=== PATIENT | female | born 1940 | race Caucasian/White ===

== ENCOUNTER → 2018-04-23 | Outpatient (CLI) | payer OTHER, BC | LOC: FIMAGING 10:19 | PROVIDERS: ATTEND Orthopaedic Surgery | DX: Z01.818 Encounter for other preprocedural examination (principal); M17.12 Unilateral primary osteoarthritis, left knee ==

== ENCOUNTER 2018-05-15 09:04 | Inpatient (IN) | payer OTHER ==
--- NOTE | 2018-05-15 06:20 | PDHPUP ---
History & Physical Update H&P update statement: This history and physical update is based on an assessment of the patient which was completed after admission or registration (within 24 hours), but prior to the surgery/procedure. H&P update: H&P reviewed & patient examined, no change in patient's condition since H&P completed
[~2018-05-15 09:04] MED LIST: ROPIVACAINE 0.2% 80 MG, EPINEPHrine 0.2 MG, KETOROLAC TROMETHAMINE 30 MG in SYRINGE 0 ML IU ONE; TRANEXAMIC ACID 3,000 MG in NS (SYRINGE) 50 ML IRR ONE; TRANEXAMIC ACID 3,000 MG/50 ML BAG IRR ONE
[2018-05-15] MEDS ORDERED: FAMOTIDINE 20 MG TAB PO ONE (09:18)
[2018-05-15] MEDS ORDERED: DEXAMETHASONE 4 MG/ML VIAL IVP ONE (09:18)
[2018-05-15] MEDS ORDERED: ceFAZolin 2 GM/DEXTROSE 100 ML IV ONE (09:18)
[2018-05-15] MEDS ORDERED: ACETAMINOPHEN 325 MG TAB PO ONE (09:18)
[2018-05-15] MEDS ORDERED: LIDOCAINE 1% 2 ML INJ ID PRN (09:19)
[2018-05-15] MEDS ORDERED: LR 1,000 ML IV ONE (09:19)
[2018-05-15] MEDS ORDERED: MIDAZOLAM 2 MG/2 ML VIAL IVP ONE ×2 (10:05→10:40)
--- NOTE | 2018-05-15 10:28 | PDANEPAE ---
ANE Past Medical History - Cardiovascular History Hx Hypertension: No Hx Arrhythmias: No Hx Chest Pain: No Hx Coronary Artery / Peripheral Vascular Disease: No Hx CHF / Valvular Disease: No Hx Palpitations: No - Pulmonary History Hx COPD: No Hx Asthma/Reactive Airway Disease: No Hx Recent Upper Respiratory Infection: No Hx Oxygen in Use at Home: No Hx Sleep Apnea: No Sleep Apnea Screening Result - Last Documented: Negative - Neurologic History Hx Cerebrovascular Accident: No Hx Seizures: No Hx Dementia: No - Endocrine History Hx Diabetes: No - Renal History Hx Renal Disorders: No - Liver History Hx Hepatic Disorders: No - Neurological & Psychiatric Hx Hx Neurological and Psychiatric Disorders: No - Cancer History Hx Cancer: No - Congenital Disorder History Hx Congenital Disorders: No - GI History Hx Gastrointestinal Disorders: No - Other Health History Other Health History: pre-glaucoma drops preventative. post menapausal - Chronic Pain History Chronic Pain: No (left shoulder,right knee) - Surgical History Prior Surgeries: childbirth 38yrs ago. colonoscopy ANE Review of Systems Review of Systems: - Exercise capacity METS (RN): 4 METS ANE Patient History - Allergies Allergies/Adverse Reactions: No Known Allergies Allergy (Verified 05/15/18 09:31) - Home Medications Home medications: home medication list seen and reviewed Home Medications: Herbals/Supplements -Info Only 1 ea PO DAILY 04/17/18 [Last Taken 04/30/18] Timolol 0.25% [TIMOPTIC 0.25% (*)] 1 drops EACHEYE DAILY 04/17/18 [Last Taken 08:00] - NPO status NPO Since - Liquids (Date): 05/15/18 NPO Since - Liquids (Time): 08:00 NPO Since - Solids (Date): 05/14/18 NPO Since - Solids (Time): 18:00 - Anes Hx Anes Hx: no prior problems - Smoking Hx Smoking Status: Former smoker - Family Anes Hx Family Hx Anesthesia Complications: none ANE Labs/Vital Signs - Vital Signs Vital Signs: reviewed preoperatively; see RN documention for details Blood Pressure: 146/88 Heart Rate: 68 Respiratory Rate: 16 O2 Sat (%): 97 Height: 160.02 cm Weight: 76.204 kg ANE Physical Exam - Airway Neck exam: FROM Mallampati Score: Class 4 Mouth exam: small mouth opening - Pulmonary Pulmonary: clear to auscultation - Cardiovascular Cardiovascular: regular rate and rhythym - ASA Status ASA Status: II ANE Anesthesia Plan Anesthesia Plan: spinal Regional Anesthesia: adductor canal FNB
[2018-05-15] MEDS ORDERED: PROPOFOL/EMULSION 500 MG/50 ML BOTTLE IV ONE (10:53)
[2018-05-15] MEDS ORDERED: BUPIVACAINE/DEXTROSE 7.5MG/ML 2 ML SPINAL AMP SP ONE (10:54)
[2018-05-15] MEDS ORDERED: RANITIDINE 50 MG/2 ML VIAL ONE (11:17)
[2018-05-15] MEDS ORDERED: METOCLOPRAMIDE 10 MG/2 ML VIAL ONE (11:17)
[2018-05-15] MEDS ORDERED: fentaNYL 100 MCG/2 ML INJ ONE (11:18)
[2018-05-15] MEDS ORDERED: ROPIVACAINE HCL 150 MG/30 ML INJ ONE (11:59)
[2018-05-15] MEDS ORDERED: PROMETHAZINE HCL 25 MG/ML INJ IVP PRN ×2 (12:01→12:33)
[2018-05-15] MEDS ORDERED: METOCLOPRAMIDE 10 MG/2 ML VIAL IVP PRN ×2 (12:01→12:33)
[2018-05-15] MEDS ORDERED: NALOXONE HCL 0.4 MG/ML INJ IVP PRN (12:01)
[2018-05-15] MEDS ORDERED: ONDANSETRON 4 MG/2 ML VIAL IVP PRN ×2 (12:01→12:33)
[2018-05-15] MEDS ORDERED: ALBUTEROL 3 ML DEYVIAL IH PRN (12:01)
[2018-05-15] MEDS ORDERED: HYDROmorphONE/DILAUDID 2 MG/ML INJ IVP PRN (12:01)
[2018-05-15] MEDS ORDERED: MEPERIDINE 25 MG/0.5 ML AMP IVP PRN (12:01)
[2018-05-15] MEDS ORDERED: LR 500 ML IV PRN (12:01)
[2018-05-15] MEDS ORDERED: fentaNYL 100 MCG/2 ML INJ IVP PRN (12:01)
[2018-05-15] MEDS ORDERED: DIAZEPAM 5 MG/ML 1 ML SYR IVP PRN (12:01)
[2018-05-15] MEDS ORDERED: diphenhydrAMINE 25 MG CAP PO PRN (12:33)
[2018-05-15] MEDS ORDERED: MAGNESIUM HYDROXIDE 30 ML UDCUP PO PRN (12:33)
[2018-05-15] MEDS ORDERED: PROMETHAZINE HCL 25 MG SUPPR PR PRN (12:33)
[2018-05-15] MEDS ORDERED: LACTULOSE 20 GM/30 ML UDCUP PO PRN (12:33)
[2018-05-15] MEDS ORDERED: ONDANSETRON DISINTEGRATING 4 MG TAB PO PRN (12:33)
[2018-05-15] MEDS ORDERED: TEMAZEPAM 15 MG CAP PO PRN (12:33)
[2018-05-15] MEDS ORDERED: BISACODYL 10 MG SUPP PR PRN (12:33)
[2018-05-15] MEDS ORDERED: DIPHENOXYLATE/ATROPINE LOMOTIL 1 TAB PO PRN (12:33)
[2018-05-15] MEDS ORDERED: POLYETHYLENE GLYCOL 3350 17 GM PKT PO PRN (12:33)
--- NOTE | 2018-05-15 12:33 | POSTOPPROG ---
Post Op Note Date of Operation: 05/15/18 Surgeon: Amber Watters Client Development Manager: jens watters PA-C and Mary Benjamin PA-C Anesthesiologist: dr. karimi Anesthesia: Local (Specify) (adductor canal block), Spinal Pre-op Diagnosis: left knee OA Post-op Diagnosis: same Indication: left knee pain Procedure: L TKA robot assisted, sensor assisted Findings: severe knee OA Inf/Abcess present in the surg proc area at time of surgery?: No EBL: 50-100
--- NOTE | 2018-05-15 12:47 | PDMN ---
Medical Necessity Medical necessity: [facility] S700 Knee Arthroplasty, Total: 77 yo s/p L TKA. IP status for close monitoring for advanced age and post op pain control per PA.
[2018-05-15] MEDS ORDERED: LR 1,000 ML IV SCH (13:00)
--- NOTE | 2018-05-15 13:28 | POSTANESTH ---
Post Anesthetic Evaluation Cardiovascular Status: Normal, Stable Respiratory Status: Normal, Stable Level of Consciousness/Mental Status: Can Participate in Eval Pain Control: Adequate, Prn Tx Ordered Nausea/Vomiting Control: Adequate, Prn Tx Ordered Complications Possibly Related to Anesthesia: None Noted
[2018-05-15] MEDS: ceFAZolin 2 GM/DEXTROSE 100 ML IV SCH ×2 (16:47→23:12)
[2018-05-15] MEDS: ACETAMINOPHEN 325 MG TAB PO SCH ×2 (16:47→23:12)
[2018-05-15] MEDS: CYCLOBENZAPRINE 10 MG TAB PO PRN (17:35)
[2018-05-15] MEDS: oxyCODONE IR 5 MG TAB PO PRN ×2 (19:06→23:32)
[2018-05-15] MEDS: ASPIRIN 81 MG CHEWABLE TAB PO SCH (19:35)
[2018-05-15] MEDS: SENNOSIDES/DOCUSATE SODIUM TAB PO SCH (19:35)
[2018-05-15] MEDS: FAMOTIDINE 20 MG TAB PO SCH (19:36)
[2018-05-16] MEDS: ACETAMINOPHEN 325 MG TAB PO SCH ×3 (05:50→19:31)
[2018-05-16] MEDS: oxyCODONE IR 5 MG TAB PO PRN ×2 (05:51→14:07)
--- NOTE | 2018-05-16 08:45 | SOAPPROG ---
SOAP Progress Note Assessment/Plan: Assessment: Patient is doing well POD 1 s/p LTKA Pain management: pain is well controlled on oral pain meds. VTE ppx: recommend 81 mg aspirin morning and evening for 4 weeks, cont NICHOLE and SCDs Anemia: level is expected initially postop. Asymptomatic. Continue to monitor D/c planning:patient has done much better than anticipated. Patient is stable, BP stable, pain well controlled and patient is eager for discharge to home. May d/c to home today pending release from PT Plan: 05/16/18 08:43 Subjective: No nausea, vomiting, chest pain or shortness of breath. Pain well-controlled. Objective: Vital Signs Temp Pulse Resp BP Pulse Ox 36.2 C 69 16 115/71 95 05/16/18 07:36 05/16/18 07:36 05/16/18 07:36 05/16/18 07:36 05/16/18 07:36 Laboratory Results 05/16/18 05:17 05/16/18 05:17 05/15/18 05/16/18 05/17/18 05:59 05:59 05:59 Intake Total 1650 Output Total 925 Balance 725 LLE: incision dressing clean and dry, positive PF/DF, NVI ICD10 Worksheet Patient Problems: Problems Problem Status Onset Primary osteoarthritis of left knee Acute
--- NOTE | 2018-05-16 09:01 | GOP ---
[f rep st] OPERATIVE REPORT DATE OF OPERATION: 05/15/2018 SURGEON: Mateusz Moore MD BUILDING DRAFTING OFFICER: VARUN Lovelace ANESTHESIA: Spinal. PREOPERATIVE DIAGNOSIS: Left knee osteoarthritis. POSTOPERATIVE DIAGNOSIS: Left knee osteoarthritis. PROCEDURE PERFORMED: Left total knee arthroplasty with computer navigation, robotic assist. FINDINGS: ESTIMATED BLOOD LOSS: 30 cc. INDICATIONS: The patient is a 77-year-old female with severe and progressive pain and deformity of t he left knee unresponsive to conservative care. The risks and benefits of surgical intervention were explained in detail. DESCRIPTION OF PROCEDURE: The patient was brought to the operative room and placed on the table in t he supine position. Spinal anesthesia was induced without difficulty. A pneumatic tourniquet was appl ied about the left proximal thigh, and the leg was prepped and draped in a sterile fashion. The leg h older was applied. After exsanguination by elevation the tourniquet was inflated to 250 mmHg. Incision was made anterior medial from the tibial tuberosity to a point 2 cm proximal to the superior pole of the patella. Medial parapatellar arthrotomy was carried out from the superior pole of the pa tella and posteriorly in line with the fibers of the Type II VMO. The medial collateral ligament was elevated and the infrapatellar fat pad was resected. The patella was everted and the articular surface was excised. A 32 mm patellar button was placed. Attention was turned first to the distal aspect of the femur. After exposure of the femur, 2 half pi ns were placed for fixation of the femoral array. In a similar fashion, 2 pins were placed anteromed ial on the tibia for fixation of the tibial array. External land marking and registration of the hip center was performed without difficulty. Internal femoral and tibial registration was carried out w ithout difficulty and the femoral and tibial checkpoints were placed and verified for accuracy. Attention was turned to the femur. The foot print for the size 2 femoral component was cut with the saw using the BoxCat robotic system and verified for accuracy against the CT based plan. In a similar f ashion, the saw was used to cut the footprint for the size 3 tibial component using the BoxCat system an d verified for accuracy against the CT based plan. The tibial articular surface was excised without d ifficulty, followed by the intercondylar box cut. The knee was extended and the remnants of the medial and lateral meniscus were excised. The posterior capsule was injected with ropivacaine, epinephrine and Toradol. A size 3 tibial tray was positioned . Trial reduction was then carried out. There was excellent range of motion, alignment, and stability using the 3 x 9 mm polyethylene. All trials were then removed. The joint was thoroughly irrigated and carefully dried. The press-fit c omponents were implanted. The permanent 3 x 9 mm polyethylene was placed without difficulty. The tourniquet was deflated and all bleeders were coagulated. The wound was thoroughly irrigated and closed using interrupted sutures of 2-0 Vicryl for the joint capsule. The subcu was closed with 3-0 V icryl and the skin with 4-0 Monocryl. Dermabond and Steri-Strips were applied followed by a compress neto dressing. The patient was then moved from the operating room to the recovery room in good conditi on, having tolerated the procedure well. PATHOLOGY: Severe lateral and patellofemoral osteoarthritis. /[id number]/MODL
--- NOTE | 2018-05-16 09:11 | GDS ---
[f rep st] DISCHARGE SUMMARY ADMISSION DIAGNOSIS: Left knee osteoarthritis. DISCHARGE DIAGNOSIS: Left knee osteoarthritis. PROCEDURE: Left total knee arthroplasty, robotic assisted. VTE PROPHYLAXIS: Recommend aspirin 81 mg twice daily for 4 weeks. BRIEF DESCRIPTION OF HOSPITAL STAY: Patient was admitted for an elective joint arthroplasty. The pa elizabeth tolerated the procedure well and has passed physical therapy. The patient was given appropriat e antibiotic prophylaxis and venous thromboembolism prophylaxis. The patient's pain was well control led on oral pain medication, patient was holding down food, and had urinated. Decision was made to d ischarge the patient. The patient was given post-operative prescriptions pre-operatively. PLAN: To follow up as scheduled with Dr. Moore's with office June 06, at 2 p.m. /[id number]/MODL
[2018-05-16] MEDS: TIMOLOL 0.25% EACHEYE SCH (09:30)
[2018-05-16] MEDS: CYCLOBENZAPRINE 10 MG TAB PO PRN (09:41)
[2018-05-16] MEDS: FAMOTIDINE 20 MG TAB PO SCH ×2 (09:42→21:00)
[2018-05-16] MEDS: ASPIRIN 81 MG CHEWABLE TAB PO SCH ×2 (09:42→21:00)
[2018-05-16] MEDS: SENNOSIDES/DOCUSATE SODIUM TAB PO SCH ×2 (09:42→21:00)
--- NOTE | 2018-05-16 10:59 | ASMTLACE ---
RAMON Length of stay for Answers: 2 days current admission Acuity / Level of Answers: Yes Care: Did the patient have an inpatient admission? # of Emergency department Answers: 0 visits in the last 6 months Score: 5 Date Signed: 05/16/2018 10:58 AM Electronically Signed By:ZEINAB Garvin
[2018-05-17] MEDS: ACETAMINOPHEN 325 MG TAB PO SCH ×3 (00:53→14:45)
[2018-05-17] MEDS: CYCLOBENZAPRINE 10 MG TAB PO PRN ×2 (01:04→09:10)
[2018-05-17] MEDS: oxyCODONE IR 5 MG TAB PO PRN ×3 (06:12→12:33)
[2018-05-17 07:47] VITALS: BP 116/79
[2018-05-17] MEDS: FAMOTIDINE 20 MG TAB PO SCH (09:11)
[2018-05-17] MEDS: ASPIRIN 81 MG CHEWABLE TAB PO SCH (09:11)
[2018-05-17] MEDS: SENNOSIDES/DOCUSATE SODIUM TAB PO SCH (09:11)
[2018-05-17] MEDS: TIMOLOL 0.25% EACHEYE SCH (11:07)
--- NOTE | 2018-05-17 13:37 | SOAPPROG ---
SOAP Progress Note Assessment/Plan: Assessment: Patient is POD 2 s/p L TKA pain is well controlled on oral pain meds Anemia: level is stable, asymptomatic VTE ppx: recommend aspirin 81 mg BID for 4 weeks and NICHOLE hose D/c planning: patient states that the PT yesterday strongly recommended SNF to her and that she compromised with PT by saying that she would accept home health care, but she is questioning why that is needed. She states she has 7 stairs to get into her house, then has a hospital bed, elevated toilet seat on bathroom on main floor and has removed any and all rugs. Patient had questions regarding exercises in the handout that we gave her at preop appt. Patient states she feels comfortable with discharge to home today with and is anxious to leave today. She does not want home health. Plan: 05/17/18 13:34 Subjective: Patient is doing well,denies SOB ,chest pain. mild-mod pain improved with oxycodone. Patient asked why she needs home health and states she does not want to go to rehab facility. Objective: Vital Signs Temp Pulse Resp BP Pulse Ox 36.5 C 78 14 116/79 96 05/17/18 07:45 05/17/18 07:45 05/17/18 07:45 05/17/18 07:45 05/17/18 07:45 Laboratory Results 05/17/18 05:01 05/16/18 05:17 05/16/18 05/17/18 05/18/18 05:59 05:59 05:59 Intake Total 1650 Output Total 925 200 900 Balance 725 -200 -900 LLE: incision dressing is clean and dry, NVI, +pf/df ICD10 Worksheet Patient Problems: Problems Problem Status Onset Primary osteoarthritis of left knee Acute
--- NOTE | 2018-05-17 14:34 | ASMTDCNOTE ---
Case Management Discharge Discharge Order Complete? Answers: Yes Patient to Obtain Answers: via Family Medications Transportation Arranged Answers: Family/Friends Family Notified Answers: Yes Discharge Comments Notes: CM discussed case with PT who is recommending home health. CM discussed with Dr. Moore, recommending home with outpatient PT. CM met with patient and . CM delivered IM, patient signed for receipt, IM placed in back of chart. Patient states she will follow up as recommended, CM available to support if any additional CM needs arise. Date Signed: 05/17/2018 02:34 PM Electronically Signed By:Kelsie Hall
== END 2018-05-17 14:49 | disposition home or self-care (01) | DRG 470 ==
LOC: F3N 09:04
PROVIDERS: ADMIT Orthopaedic Surgery; ATTEND Orthopaedic Surgery
DX: M17.12 Unilateral primary osteoarthritis, left knee (principal); G89.29 Other chronic pain
CPT/HCPCS: 97116-GP; 97161-GP; J0171; J0690; J1100; J1885; J2250; J2704; J2765; J2780; J2795; J3010